=== PATIENT | male | born 1975 | race Caucasian/White ===

== ENCOUNTER → 2017-10-15 | Outpatient (CLI) | payer OTHER ==
--- NOTE | 2017-10-15 12:36 | Diagnostic Imaging Report ---
INDICATION: Left-sided kidney stone. TIME OF EXAM: 12:33 PM COMPARISON: No prior studies are available for comparison. FINDINGS: Vague tiny calcific densities overlie the lower poles of both kidneys. These may represent renal calculi. No definite calculi along the expected course of the ureters is seen. There are pelvic calcifications present, perhaps phleboliths. The bowel gas pattern is unremarkable. IMPRESSION: Questionable tiny bilateral lower pole renal calculi. Dictated by: Dictated on workstation # [id number]
== END ==
LOC: RAD 12:02
PROVIDERS: ATTEND Urology
DX: N20.0 Calculus of kidney (principal)
CPT/HCPCS: 74018

== ENCOUNTER → 2017-10-21 | Outpatient (CLI) | payer OTHER | LOC: PREOP 10:58 | PROVIDERS: ATTEND Urology | DX: Z01.818 Encounter for other preprocedural examination (principal); N20.2 Calculus of kidney with calculus of ureter ==